=== PATIENT | male | born 1950 | race Caucasian/White ===

== ENCOUNTER 2016-12-20 03:33 | Emergency (ER) | payer MEDICARE, OTHER ==
[2016-12-20] MEDS ORDERED: HYDROCODONE/APAP 7.5/325MG TABLET PO ONE (03:51)
--- NOTE | 2016-12-20 03:56 | Emergency Department Record ---
History of Present Illness - General Chief complaint: Lower Extremity Pain Stated complaint: FOOT PAIN Time Seen by Provider: 12/20/16 03:50 Source: Patient, Family Mode of Arrival: Ambulatory Limitations: No limitations - History of Present Illness Initial comments: 66 yo male presents with increasing pain in the right foot over the last day. The pain is located over the right great toe MTP joint. There is some redness and mild swelling. NO paleness or coolness. No numbness. He has pain with weight bearing. He used a prior walking boot and crutches at home from a prior stress fracture. He was recent checked for peripheral arterial disease and it was very "mild". No calf pain or claudication symptoms. MD Complaint: Joint pain, Joint swelling -: Days(s) (2) Location: Right History of Same: No -: Yes Arthralgia Radiation: Distal Quality: Aching Consistency: Constant Improves with: Nothing Worsens with: Palpation, Weight bearing Associated Symptoms: Denies other symptoms - Related Data Home Medications Medication Instructions Recorded Confirmed Last Taken Atorvastatin Calcium 20 mg PO DAILY 12/20/16 12/20/16 12/19/16 Digoxin [Lanoxin] 125 mcg PO DAILY 12/20/16 12/20/16 12/19/16 Duloxetine HCl [Cymbalta] 60 mg PO DAILY 12/20/16 12/20/16 12/19/16 Hydrocodone/Chlorphen P-Stirex 5 ml PO Q12H 12/20/16 12/20/16 12/19/16 [Tussionex Pennkinetic Susp] Latanoprost 0.005% Opth Gay 2.5 ml OP QHS 12/20/16 12/20/16 12/19/16 [Xalatan] Levothyroxine Sodium [Synthroid] 100 mcg PO DAILY 12/20/16 12/20/16 12/19/16 Metformin HCl 1,000 mg PO BID 12/20/16 12/20/16 12/19/16 Metoprolol Succinate [Toprol Xl] 100 mg PO DAILY 12/20/16 12/20/16 12/19/16 Olmesartan/Hydrochlorothiazide 1 each PO QAM 12/20/16 12/20/16 12/19/16 [Benicar Hct 40-25 mg Tablet] Pantoprazole Sodium [Protonix] 40 mg PO DAILY 12/20/16 12/20/16 12/19/16 Pioglitazone HCl 45 mg PO DAILY 12/20/16 12/20/16 12/19/16 Sildenafil Citrate [Viagra] 100 mg PO ASDIR PRN 12/20/16 12/20/16 Unknown Testosterone [Androderm] 1 each TD QPM 12/20/16 12/20/16 12/19/16 Verapamil HCl [Verapamil ER] 240 mg PO DAILY 12/20/16 12/20/16 12/19/16 Zolpidem Tartrate [Ambien] 5 mg PO QHS 12/20/16 12/20/16 12/19/16 Previous Rx's Medication Instructions Recorded Hydrocodone/Acetaminophen [[place] 1 tab PO Q6H PRN #15 tab 12/20/16 5mg/325mg] Methylprednisolone [Medrol Dose 0 mg PO UD #1 tab.ds.pk 12/20/16 Pack] Allergies Allergy/AdvReac Type Severity Reaction Status Date / Time No Known Drug Allergies Allergy Verified 12/20/16 03:37 Review of Systems Constitutional: Denies: Chills, Fever, Malaise, Night sweats, Weakness Eyes: Denies: Eye discharge, Eye pain, Photophobia ENT: Denies: Congestion, Throat pain Respiratory: Denies: Cough, Dyspnea, Hemoptysis, Stridor, Wheezes Cardiovascular: Denies: Chest pain, Palpitations, Syncope Endocrine: Denies: Fatigue Gastrointestinal: Denies: Abdominal pain, Diarrhea, Nausea, Vomiting Genitourinary: Denies: Dysuria, Frequency, Hematuria Musculoskeletal: Reports: Arthralgia, Joint swelling. Denies: Back pain, Myalgia, Neck pain Skin: Reports: Change in color. Denies: Bruising Neurological: Denies: Confusion, Headache Psychiatric: Denies: Anxiety Hematological/Lymphatic: Denies: Blood Clots, Easy bleeding, Easy bruising, Swollen glands Physical Exam - General General Appearance: Alert, Oriented x3, Cooperative, No acute distress - Head Head exam: Normal inspection - Eye Eye exam: Normal appearance - ENT ENT exam: Normal exam Ear exam: Normal external inspection Nasal Exam: Normal inspection Mouth exam: Normal external inspection - Neck Neck exam: Normal inspection - Respiratory Respiratory exam: Normal lung sounds bilaterally. negative: Respiratory distress - Cardiovascular Cardiovascular Exam: Regular rate, Normal rhythm, Normal heart sounds. negative : Diastolic murmur, Systolic murmur Peripheral Pulses: 2+: Dorsalis Pedis (R) (warm foot, brisk cap refill), Dorsalis Pedis (L) - Rectal Rectal exam: Deferred - exam: Deferred - Extremities Extremities exam: Full ROM, Normal capillary refill, Tenderness (right first MTP tender, mild redness, mild warm). negative: Normal inspection, Pedal edema Image of Feet: 1 - tenderness, mild erythema, mild warmth - Neurological Neurological exam: Alert, Oriented X3 - Psychiatric Psychiatric exam: Normal affect, Normal mood - Skin Skin exam: Erythema, Intact. negative: Cyanosis, Diaphoretic, Mottled Course - Reevaluation(s) Reevaluation #1: Given the area of tenderness, mild erythema, mild warm labs, uric acid, crp, XR ordered He has excellent pulses of the DP and PT with a warm foot without any signs of arterial insufficiency 12/20/16 04:04 12/20/16 04:05 Reevaluation #2: The CBC was reviewed Hgb is 9.7 with MCV of 100. No prior on the system. 12/20/16 04:15 Reevaluation #3: Uric acid is 9.2 and CR is 1.3 He will be treated with steroids given his anemia and mild increase in CR at 1.3 where NSAIDS may worse both conditions. 12/20/16 04:26 Reevaluation #4: The anemia is not new. He has been anemic and recent underwent GI work up for possible GI source. He states a scope earlier this week demonstrated mild gastritis and a few polyps. No blood in the stools. He has been trying to hydrate since the endoscopy. 12/20/16 04:44 Medical Decision Making - Lab Data Result diagrams: 12/20/16 04:04 12/20/16 04:04 Disposition Disposition: Discharge Clinical Impression: Anemia Qualifiers: Anemia type: unspecified type Qualified Code(s): D64.9 - Anemia, unspecified Gout Qualifiers: Gout site: foot Gout etiology: unspecified cause Laterality: right Chronicity: acute Qualified Code(s): M10.9 - Gout, unspecified Disposition: Home, Self-Care Condition: (1) Good Instructions: Anemia (ED), Acute Gouty Arthritis (ED) Additional Instructions: Use the crutches and the boot for support Call your doctor tomorrow for close follow up Return if you have fever, chills, swelling, redness You are anemic at 9.7. Call your doctor for close follow up and comparison to prior labs. Your MCV is 100. Prescriptions: Methylprednisolone [Medrol Dose Pack] 0 mg PO UD #1 tab.ds.pk Hydrocodone/Acetaminophen [[place] 5mg/325mg] 1 tab PO Q6H PRN #15 tab PRN Reason: Pain - General Forms: Patient Portal Access Time of Disposition: 04:28
[2016-12-20 04:08] LABS: BASO % 0.2 % (0-6); GRAN % 66.2 % (47-80); HEMOGLOBIN 9.7 gm/dl (14.0-18.0); LYMPH % 25.4 % (16-45); MEAN CELL VOLUME 100.3 fl (81-97); MEAN CORPUSCULAR HGB CONC 33.4 g/dl (32-36); MEAN PLATELET VOLUME 10.3 fl (7.4-10.4); MONO % 8.2 % (0-9); PLATELET COUNT 134 K/uL (130-400); RED BLOOD COUNT 2.89 M/uL (4.40-5.70); RED CELL DISTRIBUTION WIDTH 16.4 % (11.5-14.5); WHITE BLOOD COUNT W/O DIFF 6.3 K/uL (4.2-12.2)
[2016-12-20 04:09] LABS: MEAN CORPUSCULAR HEMOGLOBIN 33.5 pg (27-33)
[2016-12-20 04:22] LABS: ANION GAP 9.4 (7-16); C-REACTIVE PROTEIN 0.6 mg/dL (0.0-0.9); CARBON DIOXIDE 26.6 mmol/L (22-30); CREATININE 1.3 mg/dL (0.66-1.25)
[2016-12-20] MEDS ORDERED: PREDNISONE 20 MG TAB PO ONE (04:28)
[2016-12-20] MEDS ORDERED: HYDROCODONE/APAP 5/325MG TABLET PO ONE (04:47)
--- NOTE | 2016-12-25 10:40 | RADIOLOGY REPORT ---
EXAM: RIGHT FOOT HISTORY: PAIN. TECHNIQUE: Three views of the right foot were obtained. Comparison: 08/03/16 right foot. Encounter: Initial. FINDINGS: Chronic changes to the proximal phalanx of the fourth digit. Mild degenerative changes of the first MTP joint with adjacent soft tissue swelling. Negative for an acute fracture or dislocation. Large calcaneal spurs. IMPRESSION: DEGENERATIVE CHANGES OF THE FIRST MTP JOINT WITH ADJACENT SOFT TISSUE SWELLING. OLD INJURY TO THE FOURTH DIGIT. JOB NUMBER: [id number] MTDD
== END 2016-12-20 05:00 | disposition home or self-care (01) ==
LOC: ER 03:33
DX: M10.071 Idiopathic gout, right ankle and foot (principal); D64.9 Anemia, unspecified
CPT/HCPCS: 99283; 99284; 84550; 85025; 86140; 80048; 73630; J7512